=== PATIENT | female | born 1975 | race Caucasian/White ===

== ENCOUNTER 2021-09-28 17:07 | Outpatient (CLI) | payer OTHER, SELFPAY ==
--- NOTE | 2021-09-28 17:22 | CT_ITS ---
STUDY: CT ABDOMEN WITH CONTRAST REASON FOR EXAM: Female, 46 years old. mid abd pain -- poss Aneurysm, poss ventral hernia RADIATION DOSAGE (If Supplied By Facility): CTDIvol = ( 13.09 ) mGy, DLP = ( 322.22 ) mGycm TECHNIQUE: Transaxial images were obtained post I.V. administration of 100 ML OF ISOVUE 300, and oral contrast. Sagittal and coronal images were reconstructed. Individualized dose optimization techniques were used for this CT. COMPARISON: None. FINDINGS: The visualized lung bases are unremarkable. The visualized portions of the heart are within normal limits. Normal liver. Normal gallbladder and extrahepatic biliary system. Normal spleen. Normal pancreas. Normal bilateral adrenal glands. Normal right kidney. Normal left kidney. Normal visualized stomach. Normal small intestine. Normal colon. The appendix is visualized and appears normal. Normal abdominal aorta. Normal inferior vena cava. Normal retroperitoneum. There is a small umbilical hernia containing adipose tissue and measuring 1.7 cm transversely. Normal osseous structures. CT/Abdomen WITH IV Contrast IMPRESSION: No evidence of aortic aneurysm. There is a small midline abdominal wall hernia. Electronically Signed: Akira Elder MD at 7:21 EDT ,
== END 2021-09-28 23:59 | disposition home or self-care (01) ==
LOC: CT 17:14
PROVIDERS: PCP Nurse Practitioner Family; Referring Provider Surgery; Visit Provider Surgery
DX: R10.9 Unspecified abdominal pain (principal)
CPT/HCPCS: 74160; Q9967